=== PATIENT | female | born 1955 | race Hispanic/Latino ===

== ENCOUNTER 2019-09-06 11:02 | Outpatient (CLI) | payer OTHER ==
--- NOTE | 2019-09-06 13:56 | Magnetic Resonance Report ---
MRI LUMBAR SPINE WITHOUT CONTRAST INDICATION / CLINICAL INFORMATION: MAIN: M54.16 LUMBAR RADICULOPATHY, RT LEG PAIN. TECHNIQUE: Multisequence, multiplanar images of the lumbar spine were obtained. COMPARISON: None available. FINDINGS: ALIGNMENT: Normal lumbar lordosis without significant scoliosis. VERTEBRAE:Normal marrow signal and vertebral body height for age. Disc spaces: Diffuse disc desiccation is noted. There is mild disc space narrowing at L3-4 and L5-S1. Facet joints: Mild to moderate facet arthropathy at L3-4 and L4-5. VISUALIZED SPINAL CORD: No significant abnormality. The conus terminates at the inferior endplate of L1. [id number]-[id number] ANALYSIS: L1-2: No significant abnormality. L2-3: No significant abnormality. L3-4: A mild posterior bulging disc lateralizes to the right side. There is mild facet arthropathy an d hypertrophy ligamentum flavum. No central canal narrowing. Right neural foraminal narrowing is edyta mated at 25-50%. L4-5: A mild diffuse posterior bulging disc is identified. Mild to moderate facet arthropathy is iden tified. The right side is more affected. Mild hypertrophy ligamentum flavum. There is mild central ca nal narrowing at this level measuring 8 mm in AP dimension. Mild bilateral neural foraminal narrowing is estimated at 25%. L5-S1: A moderate to large central disc extrusion is identified which extends along the posterior vinay face of the superior sacrum. This extrusion measures 1 cm transverse, 6 mm in AP and 7 mm craniocauda l. This extrusion elevates the anterior thecal sac and mildly narrows the central canal measuring 7-8 mm in AP dimension. Moderate to severe left neural foraminal narrowing is identified and estimated a t 50-75%. PARASPINAL SOFT TISSUES: No significant abnormality. ADDITIONAL FINDINGS: None. IMPRESSION: Mild to moderate lumbar spondylosis as described. The lowest 3 levels are most affected. Moderate to large central disc extrusion at L5-S1 with mild mass effect and central canal narrowing. Left neural foraminal narrowing at this level is estimated at 50-75%. Mild central canal narrowing is identified at L4-5 and L5-S1. Signer Name: Giovanni Barbosa Jr, MD Signed: 09/06/2019 1:52 PM Workstation Name: [id number]
== END 2019-09-06 11:03 | disposition home or self-care (01) ==
LOC: MRI 11:02
PROVIDERS: ATTEND Orthopaedic Surgery
DX: M48.061 Spinal stenosis, lumbar region without neurogenic claudication (principal); M47.26 Other spondylosis with radiculopathy, lumbar region
CPT/HCPCS: 72148